=== PATIENT | female | born 1985 | race Caucasian/White ===

== ENCOUNTER 2019-08-27 19:13 | Emergency (ER) | payer OTHER ==
[~2019-08-27] VITALS: Ht 167.6 cm; Wt 87.1 kg
[2019-08-27 19:50] VITALS: Ht 167.6 cm; Wt 87.1 kg
[2019-08-27 21:29] LABS: BASOPHIL % 0.2 % (0-2); PLATELET COUNT 257 x10^3mcL (130-400); RED CELL DISTRIBUTION WIDTH 13.4 % (11.5-14.5)
[2019-08-27 21:38] LABS: CALCIUM 9.1 mg/dL (8.5-10.1); CARBON DIOXIDE 29.1 mmol/L (21-32); CHLORIDE SERUM 99 mmol/L (98-107); CREATININE SERUM 0.5 mg/dL (0.6-1.0); GFR1 > 60 mL/min; GLUCOSE SERUM 93 mg/dL (74-106); POTASSIUM SERUM 3.8 mmol/L (3.5-5.1); SODIUM SERUM 134 mmol/L (136-145)
[2019-08-27 21:42] LABS: ALKALINE PHOSPHATASE 100 U/L (46-116); ALT/SGPT 74 U/L (14-59); AST/SGOT 28 U/L (15-37); BILIRUBIN TOTAL 0.3 mg/dL (0.20-1.00); LIPASE 72 IU/L (73-393)
[2019-08-27 21:44] LABS: TOTAL PROTEIN, SERUM 8.5 g/dL (6.4-8.2)
[2019-08-27 23:06] VITALS: BP 133/89
== END 2019-08-27 23:06 | disposition home or self-care (01) ==
LOC: ED 19:13
PROVIDERS: Emergency Medicine
DX: J11.1 Influenza due to unidentified influenza virus with other respiratory manifestations (principal); E86.0 Dehydration; R10.816 Epigastric abdominal tenderness; Z88.1 Allergy status to other antibiotic agents
CPT/HCPCS: 87804; J1885; J2405; Q0092